=== PATIENT | female | born 1975 | race Caucasian/White ===

== ENCOUNTER 2023-06-16 11:14 | Outpatient (CLI) | payer MEDICARE, MEDICAID, SELFPAY | END 2023-06-16 11:15 | disposition home or self-care (01) | PROVIDERS: PCP Family Medicine; Visit Provider Family Medicine | DX: Z00.00 Encounter for general adult medical examination without abnormal findings (principal); D84.9 Immunodeficiency, unspecified; Z79.899 Other long term (current) drug therapy; Z48.22 Encounter for aftercare following kidney transplant | CPT/HCPCS: 80048; 84443; 85025 ==

== ENCOUNTER 2023-06-24 13:24 | Outpatient (RCR) | payer MEDICARE, MEDICAID, SELFPAY ==
[2022-12-02 15:05] LABS: Potassium* 4.4 mmol/L (3.6-5.1)
[2022-12-02 15:08] LABS: Creatinine* 1.7 mg/dL (0.5-1.5); Estimated Glomerular Filt Rate 37 ml/min; Glucose* 127 mg/dL (60-115)
[2022-12-02 15:45] LABS: Basophils Absolute Auto 0.06 K/uL (0.00-0.30); Eosinophils Absolute Auto 0.12 K/uL (0.00-0.50); Eosinophils Percent Auto 2.1 % (0.0-7.0); Hemoglobin* 13.1 gm/dL (12.0-16.0); Lymphocytes Absolute Auto 1.47 K/uL (0.90-2.90); Lymphocytes Percent Auto 25.4 % (20-44); Mean Corpuscular HGB Conc 32 gm/dL (32-36); Mean Corpuscular Hemoglobin 28 pg (26-34); Mean Corpuscular Volume 87 fL (80-100); Monocytes Percent Auto 5.2 % (0.0-11.0); Neutrophils Absolute Auto 3.84 K/uL (1.7-7.0); Neutrophils Percent Auto 66.3 % (42.0-72.0); Platelet Count* 289 K/uL (140-440); RDW Coefficient of Variation % 14.6 % (11.5-15.5); Red Blood Count 4.69 m/uL (4.00-5.20); White Blood Count* 5.79 K/uL (4.50-11.00)
[2022-12-02 15:47] LABS: Slide Review Reflex No
[2022-12-11 14:25] LABS: Creatinine* 1.6 mg/dL (0.5-1.5); Estimated Glomerular Filt Rate 39 ml/min
[2023-03-25 14:25] LABS: Creatinine* 1.4 mg/dL (0.5-1.5); Estimated Glomerular Filt Rate 46 ml/min
[2023-06-24 14:24] LABS: Creatinine Urine 187.5 mg/dL
[2023-06-24 14:29] LABS: Microalbumin Creatinine Ratio 20 mg/g (0-30); Microalbumin Urine 4 mg/dL
== END 2024-05-31 08:58 | disposition home or self-care (01) ==
LOC: LAB 13:24
PROVIDERS: PCP Family Medicine; Visit Provider Internal Medicine
DX: D84.9 Immunodeficiency, unspecified (principal); Z79.899 Other long term (current) drug therapy; Z48.22 Encounter for aftercare following kidney transplant
CPT/HCPCS: 36415; 82043; 82565; 82570; 82947; 84132; 85025

== ENCOUNTER 2024-01-06 14:25 | Outpatient (REF) | payer MEDICARE, MEDICAID, SELFPAY ==
[2024-01-06 16:07] LABS: Basophils Absolute Auto 0.07 K/uL (0.00-0.30); Eosinophils Absolute Auto 0.13 K/uL (0.00-0.50); Eosinophils Percent Auto 1.9 % (0.0-7.0); Hematocrit 42.9 % (33.0-51.0); Hemoglobin* 13.3 gm/dL (12.0-16.0); Immature Granulocytes Abs Auto 0.01 K/uL (0.00-0.30); Immature Granulocytes Pct Auto 0.1 %; Lymphocytes Percent Auto 24.2 % (20-44); Mean Corpuscular HGB Conc 31 gm/dL (32-36); Mean Corpuscular Hemoglobin 27 pg (26-34); Mean Corpuscular Volume 89 fL (80-100); Monocytes Percent Auto 5.1 % (0.0-11.0); Neutrophils Absolute Auto 4.75 K/uL (1.7-7.0); Neutrophils Percent Auto 67.7 % (42.0-72.0); Platelet Count* 268 K/uL (140-440); RDW Coefficient of Variation % 14.1 % (11.5-15.5); Red Blood Count 4.85 m/uL (4.00-5.20); Slide Review Reflex No; White Blood Count* 7.02 K/uL (4.50-11.00)
[2024-01-06 16:10] LABS: Chloride* 108 mmol/L (96-114); Potassium* 4.4 mmol/L (3.6-5.1); Sodium* 140 mmol/L (135-149)
[2024-01-06 16:12] LABS: Creatinine* 1.2 mg/dL (0.5-1.5); Estimated Glomerular Filt Rate 55 ml/min
[2024-01-06 16:13] LABS: Anion Gap 7 mEq/L (7-15); Blood Urea Nitrogen* 29 mg/dL (7-30); Calcium* 9.9 mg/dL (8.4-10.6); Carbon Dioxide* 25 mmol/L (20-32); Glucose* 104 mg/dL (60-115)
[2024-01-09 10:26] LABS: Tacrolimus by HPLC-MS/MS 4.8 ng/mL
== END 2024-01-06 14:26 | disposition home or self-care (01) ==
LOC: NPINS 14:25
PROVIDERS: PCP Family Medicine; Visit Provider Family Medicine
DX: Z94.0 Kidney transplant status (principal); D64.9 Anemia, unspecified; Z79.899 Other long term (current) drug therapy
CPT/HCPCS: 80048; 80197; 85025

== ENCOUNTER 2024-07-04 22:29 | Outpatient (RCR) | payer MEDICARE, MEDICAID, SELFPAY ==
[2024-03-28 20:32] LABS: Chloride* 110 mmol/L (96-114); Potassium* 4.4 mmol/L (3.6-5.1); Sodium* 141 mmol/L (135-149)
[2024-03-28 20:34] LABS: Hematocrit* 43.0 % (33.0-51.0); Hemoglobin* 13.5 gm/dL (12.0-16.0); Immature Granulocytes Abs Auto 0.04 K/uL (0.00-0.30); Immature Granulocytes Pct Auto 0.7 %; Lymphocytes Absolute Auto 1.77 K/uL (0.90-2.90); Mean Corpuscular HGB Conc 31 gm/dL (32-36); Mean Corpuscular Hemoglobin 28 pg (26-34); Mean Corpuscular Volume 89 fL (80-100); RDW Coefficient of Variation % 13.7 % (11.5-15.5); Red Blood Count* 4.84 m/uL (4.00-5.20); White Blood Count* 6.10 K/uL (4.50-11.00)
[2024-03-28 20:35] LABS: Anion Gap 10 mEq/L (7-15); Blood Urea Nitrogen* 25 mg/dL (7-30); Carbon Dioxide* 21 mmol/L (20-32); Creatinine* 1.1 mg/dL (0.5-1.5); Estimated Glomerular Filt Rate 61 ml/min; Slide Review Reflex No
[2024-03-28 20:36] LABS: Calcium* 9.8 mg/dL (8.4-10.6); Glucose* 104 mg/dL (60-115)
[2024-03-29 14:21] LABS: Creatinine Urine 28.5 mg/dL
[2024-03-29 14:29] LABS: Microalbumin Urine 1 mg/dL
[2024-07-04 23:45] LABS: Chloride* 107 mmol/L (96-114)
[2024-07-04 23:46] LABS: Hematocrit* 45.3 % (33.0-51.0); Hemoglobin* 13.9 gm/dL (12.0-16.0); Immature Granulocytes Abs Auto 0.07 K/uL (0.00-0.30); Immature Granulocytes Pct Auto 1.0 %; Lymphocytes Absolute Auto 1.84 K/uL (0.90-2.90); Mean Corpuscular HGB Conc 31 gm/dL (32-36); Mean Corpuscular Hemoglobin 27 pg (26-34); Mean Corpuscular Volume 89 fL (80-100); Potassium* 4.3 mmol/L (3.6-5.1); RDW Coefficient of Variation % 14.1 % (11.5-15.5); Red Blood Count* 5.10 m/uL (4.00-5.20); Sodium* 139 mmol/L (135-149); White Blood Count* 6.95 K/uL (4.50-11.00)
[2024-07-04 23:48] LABS: Creatinine* 1.4 mg/dL (0.5-1.5); Estimated Glomerular Filt Rate 46 ml/min
[2024-07-04 23:49] LABS: Anion Gap 11 mEq/L (7-15); Blood Urea Nitrogen* 31 mg/dL (7-30); Calcium* 10.2 mg/dL (8.4-10.6); Carbon Dioxide* 21 mmol/L (20-32); Glucose* 98 mg/dL (60-115)
[2024-07-05 00:27] LABS: Slide Review Reflex No
== END 2025-06-28 08:18 | disposition home or self-care (01) ==
LOC: LAB 22:29
PROVIDERS: PCP Family Medicine; Visit Provider Physician Assistant
DX: Z94.0 Kidney transplant status (principal); D84.9 Immunodeficiency, unspecified; Z79.899 Other long term (current) drug therapy
CPT/HCPCS: 36415; 80048; 80197; 82043; 82570; 85025

== ENCOUNTER 2025-04-04 13:27 | Outpatient (CLI) | payer MEDICARE, MEDICAID, SELFPAY | END 2025-04-04 13:28 | disposition home or self-care (01) | PROVIDERS: PCP Family Medicine; Visit Provider Family Medicine | DX: Z94.0 Kidney transplant status (principal); R53.83 Other fatigue | CPT/HCPCS: 80048; 82306 ==